=== PATIENT | male | born 1940 | race Two or more races ===

== ENCOUNTER → 2017-09-20 | Emergency (ER) | payer OTHER ==
[~2017-09-20] VITALS: Ht 175.3 cm; Wt 72.6 kg
[~2017-09-20] MED LIST: ADULT ASPIRIN81 MG; ASA81 MG; CEFADROXIL500 MG PO; CENTRUM MULTIV1 EACH; CENTRUM SILVER1 EAC2; COSAMIN DS CAP1 EAC1; Cordarone 200 MG TAB PO; DIOVAN40 MG; ETODOLAC500 M1; FENOFIBRATE160 MG; FOLIC ACID1 MG; GABAPENTIN300 MG; GLIMEPIRIDE4 MG; INTESTINEX1 CAP PO; LEVAQUIN750 MG PO; LOSARTAN-HCTZ1 EAC1; LOSARTAN-HCTZ1 EACH; METFORMIN HCL500 MG; NEURONTIN300 MG; PANTOPRAZOLE SO40 MG; PROTONIX40 M1; SIMVASTATIN40 MG; TOPROL XL25 MG; TUSSIN DM SYRU120 ML PO; ZOCOR40 MG
== END | disposition home or self-care (01) ==
LOC: ER 15:37
DX: R42 Dizziness and giddiness (principal)

== ENCOUNTER 2018-10-13 08:06 | Outpatient (CLI) | payer OTHER | END 2018-10-13 08:20 | disposition home or self-care (01) | LOC: TOM 08:06 | DX: I77.811 Abdominal aortic ectasia (principal) | CPT/HCPCS: 71260; Q9965 ==